=== PATIENT | male | born 1945 | race Caucasian/White ===

== ENCOUNTER 2019-08-29 13:28 | Outpatient (CLI) | payer MEDICARE, OTHER, SELFPAY ==
--- NOTE | 2019-08-29 13:48 | CT_ITS ---
WS: [id number] CT ABDOMEN PELVIS TECHNIQUE: Noncontrast CT of the abdomen and pelvis with coronal and sagittal reformatted images. CLINICAL INFORMATION: LEFT FLANK PAIN COMPARISON: CT January 25, 2019 DLP: 1165.[address] scans at [facility] use at least one of these dose optimization techniques: automat ed exposure control; mA and/or kV adjustment per patient size (includes targeted exams where dose is matched to clinical indication); or iterative reconstruction. FINDINGS: Noncontrast liver is normal. Enlargement of the right hepatic lobe hepatomegaly. Normal GE junction. Adrenal glands are normal. Normal noncontrast spleen. Fatty atrophy of the pancreas. Lung bases are w ell aerated. Calcified granuloma right lower lobe. Obstructing bilateral proximal ureteral calculi. Left proximal obstructing calculus measuring 4 mm w ith mild left pelvocaliectasis. Distal ureter is decompressed. Additional obstructing right proximal ureteral calculus measuring 3.6 mm. Otherwise small nonobstruct ing renal parenchymal calculi. Distal right ureter is decompressed. Indeterminate heterogeneous lesion mid pole right kidney measuring 2.0 x 1.9 cm. This is indeterminan t on today's noncontrast examination but appears to represent a cyst in the prior contrast enhanced e xamination January 25, 2019. Tiny exophytic lesion right lower pole likely renal cyst. Normal calibe r abdominal aorta. Moderate aortic atheromatous disease. No significant aneurysm. Prostate calcification. Gallbladder is contracted. No abdominal or pelvic lymphadenopathy. No free fl uid in the pelvis. IMPRESSION: 1. Small bilateral ureteral calculi proximally measuring 4 mm on the left and 3.6 mm in the right. M ild left pyelocaliectasis and mild hydronephrosis. No hydronephrosis right kidney. The distal ureters are decompressed. 2. Heterogeneous 2.0 x 1.9 cm lesion mid aspect right kidney posterolaterally. This is indeterminant on today's exam but appears to represent a cyst on the prior contrast exam January 25, 2019. Recomm end further evaluation with ultrasound. 3. Hepatomegaly with mild diffuse fatty infiltration. 4. Moderate aortic calcification. No significant aneurysm.
== END 2019-08-29 13:29 | disposition home or self-care (01) ==
LOC: RADWPI 13:37
PROVIDERS: Family Provider Nurse Practitioner; PCP Nurse Practitioner; Visit Provider Family Medicine
DX: R10.9 Unspecified abdominal pain (principal); N13.2 Hydronephrosis with renal and ureteral calculous obstruction; K76.0 Fatty (change of) liver, not elsewhere classified; I70.0 Atherosclerosis of aorta
CPT/HCPCS: 74176

== ENCOUNTER 2020-01-04 16:37 | Emergency (ER) | payer MEDICARE, OTHER, SELFPAY ==
[2020-01-04 16:42] VITALS: BP 164/111; PULSE 74; RESP 14; TEMP 36.4; O2SAT 100; BMI 29.5
--- NOTE | 2020-01-04 16:43 | XRR_ITS ---
PROCEDURE INFORMATION: Exam: XR Left Finger(s) Exam date and time: 01/04/2020 4:49 PM Age: 74 years old Clinical indication: Injury or trauma; Other: Circular saw; Bleeding/hemorrhage; Left middle finger; Injury date: 01/04/2020; Additional info: Finger v circular saw TECHNIQUE: Imaging protocol: XR Left fingers. Views: Minimum 2 views. COMPARISON: No relevant prior studies available. FINDINGS: Bones/joints: Multi-articular primary osteoarthritic changes including joint space narrowing, subchondral cystic/sclerotic changes, and marginal osteophyte formations. Soft tissues: There is soft tissue laceration at the volar aspect of the distal 3rd finger. No underlying bony injury is seen. There are benign-appearing soft tissue calcifications. XR/XR finger LT min 2V [id number] IMPRESSION: There is soft tissue laceration at the volar aspect of the distal 3rd finger. No underlying bony injury is seen.
[2020-01-04] MEDS: acetaminophen 500 mg Tablet 1000 MG PO (17:04)
--- NOTE | 2020-01-04 17:42 | ED_ITS ---
Documented by User: Lenora Tesfaye MD 01/08/20 06:40 HPI - Wound/Laceration General: Chief Complaint: Wound/Laceration Stated Complaint: INJURY VIA CIRCLULAR SAW Time Seen by Provider: 01/04/20 16:43 History of Present Illness: HPI narrative: This patient is a 74-year-old gentleman who was using a circular saw to cut wood. He got his left hand too close to the blade and it cut the tip of his left finger. His tetanus shot is u p-to-date. He denies any other injuries. Onset (ago): minute(s) Extremity Location: Left: hand Place: home Context: accidental Associated symptoms: Reports no associated symptoms Review of Systems Card: Denies: chest pain Resp: Denies: dyspnea Physical Exam Const: COMMON NORMALS: no acute distress, patient oriented x3, no limitations and alert GENERAL APPEARANCE: cooperative and comfortable HENMT: HEAD & SCALP: normal to inspection FACE & SINUS: normal facial exam Eye: GENERAL EYE: appearance normal, both eyes and all related structures Neck/C-Spine: COMMON NORMALS: supple, no meningeal signs and no JVD Chest: COMMONS NORMALS: normal inspection of the chest Resp: COMMON NORMALS: normal respiratory effort, No use of accessory muscles and clear to auscultation bilaterally AUSCULTATION: clear to auscultation bilaterally Cardio: COMMON NORMALS: no JVD, regular rate, regular rhythm and No murmurs present (Cardio) RATE: regular rate RHYTHM: regular rhythm GI: COMMON NORMALS: Normal to inspection, nondistended, normoactive bowel ze nds present, Soft to palpation and non-tender INSPECTION: Yes normal to inspection AUSCULTATION: Yes normoactive bowel sounds PALPATION: Yes Soft to palpation Back/Pelvis: COMMON NORMALS: thoracic and lumbar spine normal to inspection Extremity: NARRATIVE EXTREMITY EXAM: Tip of the long finger on the left hand has a flap type laceration on the volar surface. Nail and joints are intact. There is also an abrasion on the volar surface of the index finger on the left hand. GENERAL: Yes normal exam except as noted Neuro: COMMON NORMALS: patient oriented x3, moves all extremities, no focal motor deficits and no sensory deficits noted SENSORIUM/ORIENTATION: Yes alert MENINGEAL SIGNS: Yes no meningeal signs Psych: COMMON NORMALS: mental status grossly normal, cooperative and normal affect Skin: COMMON NORMALS: no rashes or lesions noted and turgor normal GENERAL SKIN EXAM: no rashes or lesions noted and turgor normal Course Vital Signs: Vital signs: Vital Signs Temperature 97.6 F 01/04/20 16:42 Pulse Rate 75 01/04/20 18:29 Respiratory Rate 16 01/04/20 18:29 Blood Pressure 150/89 01/04/20 18:29 Pulse Oximetry 95 01/04/20 18:29 Discharge Plan Discharge Patient Disposition: Home Clinical Impression: Laceration Condition: Stable Discharge Orders: Discharge Order (Routine); Ordered 01/04/20 Ordered By: Lenora Tesfaye Referrals: Astrid Streeter FNP [Primary Care Provider] - Discharge Diet: Usual diet Discharge Activity: Resume usual activity Patient Instructions: Finger Laceration (ED) Activity Restrictions/Additional Instructions: Use Tylenol [id number] for pain. Keep hand elevated as it will help to reduce pain and swelling. Return to the ER if any new or worse symptoms. Watch for signs of infection. Sutures should be removed in about 10 days Discharge Date/Time: 01/04/20 18:30 Coding Level of Care Code ED Termite Control Technician for Chg Fwd Exam Comprehensive Documented by User: MAIKOL Mcgovern 01/04/20 21:45 HPI - Wound/Laceration General: Chief Complaint: Wound/Laceration Stated Complaint: INJURY VIA CIRCLULAR SAW Time Seen by Provider: 01/04/20 16:43 Procedures Laceration Laceration 1: Site: hand (3rd finger left hand) Side (If applicable): left Size (cm): 2 Description: flap Depth: simple, single layer Pre-repair: wound explored Skin layer closed with: nylon Size (cm): 4-0 Number of sutures: 5 Technique: simple, interrupted Nerve Block Nerve Block 1: Time out performed: Yes Local Anesthetic: lidocaine 1% Amount of anesthesia used (mL): 10 Side: left Nerve Blocks: digital (3rd digit, left hand) Procedure Successful: Yes Patient Tolerated Procedure: well Course Vital Signs: Vital signs: Vital Signs Temperature 97.6 F 01/04/20 16:42 Pulse Rate 75 01/04/20 18:29 Respiratory Rate 16 01/04/20 18:29 Blood Pressure 150/89 01/04/20 18:29 Pulse Oximetry 95 01/04/20 18:29 Discharge Plan Discharge Patient Disposition: Home Clinical Impression: Laceration Condition: Stable Discharge Orders: Discharge Order (Routine); Ordered 01/04/20 Ordered By: Lenora Tesfaye Referrals: Astrid Streeter FNP [Primary Care Provider] - Discharge Diet: Usual diet Discharge Activity: Resume usual activity Patient Instructions: Finger Laceration (ED) Activity Restrictions/Additional Instructions: Use Tylenol [id number] for pain. Keep hand elevated as it will help to reduce pain and swelling. Return to the ER if any new or worse symptoms. Watch for signs of infection. Sutures should be removed in about 10 days Discharge Date/Time: 01/04/20 18:30 Coding Level of Care Code ED Termite Control Technician for Lyly Fwd Exam Comprehensive
[2020-01-04 18:29] VITALS: BP 150/89; PULSE 75; RESP 16; O2SAT 95
== END 2020-01-04 18:30 | disposition home or self-care (01) ==
PROVIDERS: Emergency Provider Emergency Medicine; PCP Nurse Practitioner
DX: S61.213A Laceration without foreign body of left middle finger without damage to nail, initial encounter (principal); W27.0XXA Contact with workbench tool, initial encounter
CPT/HCPCS: 12001; 12345; 73140; 99283

== ENCOUNTER 2021-08-23 20:06 | Emergency (ER) | payer MEDICARE, OTHER, SELFPAY ==
[2021-08-23 20:06] VITALS: BMI 29.2
--- NOTE | 2021-08-23 20:09 | XRR_ITS ---
PROCEDURE INFORMATION: Exam: XR Left Shoulder Exam date and time: 08/23/2021 8:21 PM Age: 76 years old Clinical indication: Pain; Shoulder; Left; Additional info: Fall TECHNIQUE: Imaging protocol: Radiologic exam of the Left shoulder. Views: 2 or more views. COMPARISON: US soft tissue/extremity [id number] 04/12/2021 2:55 PM FINDINGS: Bones/joints: Normal. Soft tissues: Normal. XR/XR shoulder LT min 2V* [id number] IMPRESSION: No acute findings.
[2021-08-23 20:11] VITALS: BP 153/86; PULSE 72; RESP 16; TEMP 36.7; O2SAT 96
--- NOTE | 2021-08-23 20:14 | ED_ITS ---
HPI - Trauma General: Chief Complaint: Trauma Stated Complaint: FALL Time Seen by Provider: 08/23/21 20:06 Source: patient and EMS Mode of arrival: EMS Limitations: no limitations History of Present Illness: 76-year-old male states that he was up on a 6 foot ladder just before arrival. He states that he got turned weird and fell off backwards. He states that he hit his back along with his left shoulder and his head. He states he has low back pain along with upper back pain left shoulder left chest and neck pain. He is unsure if he had loss consciousness has a very mild headache. States his pain currently is a 4 out of 10 denies any other injuries he was ambulatory after the event. Associated symptoms: Reports back pain, chest pain and headache(s); Denies abdominal pain, chills, dental pain, fever(s), nausea or vomiting Review of Systems Const: Denies: fever(s), chills, body aches or change in appetite Eyes: Denies: blurry vision or eye discomfort ENMT: Denies: throat pain or dental pain Card: Reports: chest pain Resp: Denies: dyspnea GI: Denies: abdominal pain, nausea, vomiting or diarrhea : Denies: dysuria Musc: Reports: neck pain and back pain Skin/Breast: Denies: rash Neuro: Reports: headache(s) Psych: Denies: depression Madhu/Lymph: Denies: easy bruising All/Imm: Denies: urticaria [facility] ED PFSH: Medical History (Updated 08/23/21 @ 22:16 by Triny Cassidy MD) No pertinent past medical history Social History Smoking and tobacco status: never smoked Physical Exam Const: COMMON NORMALS: no acute distress, patient oriented x3 and healthy appearing HENMT: COMMON NORMALS: normocephalic; head/scalp not atraumatic (tenderness over left scalp) HEAD & SCALP: normocephalic; not atraumatic (tenderness over left scalp) Eye: COMMON NORMALS: Equal, round and reactive pupils present and EOMs intact bilaterally PUPIL: Yes Equal, round and reactive pupils present Neck/C-Spine: OTHER: left neck tenderness Chest: COMMONS NORMALS: normal inspection of the chest OTHER: slight tenderness over left upper chest Resp: COMMON NORMALS: normal respiratory effort, No retractions, No use of accessory muscles and clear to auscultation bilaterally AUSCULTATION: clear to auscultation bilaterally Cardio: COMMON NORMALS: regular rate, regular rhythm and No murmurs present (Cardio) RATE: regular rate RHYTHM: regular rhythm GI: COMMON NORMALS: Normal to inspection, nondistended, normoactive bowel ze nds present, Soft to palpation, non-tender and no masses PALPATION: Yes Soft to palpation Back/Pelvis: OTHER: l spine tenderness Extremity: COMMON NORMALS: normal to inspection and full ROM Neuro: COMMON NORMALS: patient oriented x3, moves all extremities and no focal motor deficits Psych: COMMON NORMALS: mental status grossly normal, Normal thought process present and cooperative THOUGHT PROCESS: Normal thought process present Skin: COMMON NORMALS: no rashes or lesions noted and no wounds GENERAL SKIN EXAM: no rashes or lesions noted Course Vital Signs: Vital signs: Vital Signs Temperature 98.1 F 08/23/21 20:11 Pulse Rate 72 08/23/21 20:11 Respiratory Rate 16 08/23/21 20:11 Blood Pressure 153/86 08/23/21 20:11 Pulse Oximetry 96 08/23/21 20:11 MDM - Trauma Medical Decision Making Patient presents here after a fall off a ladder. Does have a left rib fracture causing pain. On exam he does have low back pain no CT findings CT showed a possible iliac fracture he has no tenderness over his iliac he is able ambulate without any difficulty. We will place him on pain meds he is stable for discharge she is to follow-up on return if worsening. Lab Data Radiology Impressions Shoulder X-Ray 08/23/21 20:09 IMPRESSION: No acute findings. Cervical Spine CT 08/23/21 20:31 IMPRESSION: No acute findings. Nonemergent thyroid ultrasound recommended for finding posteriorly on the right. Chest CT 08/23/21 20:31 IMPRESSION: 1. Left rib fractures of uncertain age, likely old. 2. Otherwise no acute findings in the chest COMMENTS: Consistent with the [employer]'s Incidental Findings Committee white paper (J Am Aydin Radiol 2018): Any incidental renal lesion less than 1 cm or classified as too small to characterize, or any incidental cystic renal lesion characterized as simple-appearing, is likely benign. No follow-up imaging is recommended for these lesions per consensus recommendations based on imaging criteria. Head CT 08/23/21 20:31 IMPRESSION: No acute intracranial abnormality. Lumbar Spine CT 08/23/21 20:31 IMPRESSION: 1. Degenerative changes and spinal stenosis in the lumbar spine as described. 2. Question of small nondisplaced avulsion fracture posterior aspect of the right iliac bone. 3. No major fracture is identified. Discharge Plan Discharge Patient Disposition: Home Clinical Impression: Left rib fracture, Back contusion Fall Qualifiers: Encounter type: initial encounter Qualified Code(s): W19.XXXA - Unspecified fall, initial encounter Condition: Stable Prescriptions: New hydrocodone-acetaminophen 5-325 mg tablet 1 tab PO Q6H PRN (Reason: pain) Qty: 14 0RF Discharge Orders: Discharge ED (Routine); Ordered 08/23/21 Ordered By: Triny Cassidy Referrals: Astrid Streeter FNP [Primary Care Provider] - 1-3 days Discharge Diet: Advance as tolerated Discharge Activity: Resume usual activity Patient Instructions: Rib Fracture (ED), Low Back Strain (ED), Opioid Safety Coding Level of Care Code ED Promotions Specialist for Chg Fwd Exam Comprehensive
--- NOTE | 2021-08-23 20:31 | CTR_ITS ---
PROCEDURE INFORMATION: Exam: CT Chest Without Contrast; Diagnostic Exam date and time: 08/23/2021 9:10 PM Age: 76 years old Clinical indication: Injury or trauma; Fall; Blunt trauma (contusions or hematomas); Additional info: Fall from ladder, left side chest pain TECHNIQUE: Imaging protocol: Diagnostic computed tomography of the chest without contrast. Radiation optimization: All CT scans at this facility use at least one of these dose optimization techniques: automated exposure control; mA and/or kV adjustment per patient size (includes targeted exams where dose is matched to clinical indication); or iterative reconstruction. COMPARISON: CR Chest 1 [place] [id number] 01/26/2019 12:03 PM RADIATION DOSE METRICS: Total DLP (mGy-cm): 1136.45 FINDINGS: Lungs: There is some mild fibrotic changes at the pulmonary apices and some subpleural emphysema. There is mild dependent atelectasis at the lung bases. Pleural spaces: No pneumothorax is identified. Heart: There is moderate atherosclerotic calcification of the coronary arteries. Lymph nodes: There is no evidence of lymphadenopathy. Vasculature: There is no evidence of thoracic aortic aneurysm. There is some mild atherosclerotic calcification of the aortic arch and descending thoracic aorta. Kidneys and ureters: There is a right renal collecting system calcification. There is a benign-appearing cyst upper pole right kidney. Bones/joints: There are fractures of the lateral aspect of the left 2nd through 5th ribs. There are mild degenerative changes in the thoracic spine. No acute thoracic spine fracture is identified. Second and 3rd rib fractures appear to be old and healed. The others are likely also chronic. Soft tissues: Unremarkable. CT/CT chest con [id number] IMPRESSION: 1. Left rib fractures of uncertain age, likely old. 2. Otherwise no acute findings in the chest COMMENTS: Consistent with the [employer]'s Incidental Findings Committee white paper (J Am Aydin Radiol 2018): Any incidental renal lesion less than 1 cm or classified as too small to characterize, or any incidental cystic renal lesion characterized as simple-appearing, is likely benign. No follow-up imaging is recommended for these lesions per consensus recommendations based on imaging criteria.
--- NOTE | 2021-08-23 20:31 | CTR_ITS ---
PROCEDURE INFORMATION: Exam: CT Cervical Spine Without Contrast Exam date and time: 08/23/2021 9:06 PM Age: 76 years old Clinical indication: Injury or trauma; Fall; Blunt trauma TECHNIQUE: Imaging protocol: Computed tomography of the cervical spine without contrast. Radiation optimization: All CT scans at this facility use at least one of these dose optimization techniques: automated exposure control; mA and/or kV adjustment per patient size (includes targeted exams where dose is matched to clinical indication); or iterative reconstruction. COMPARISON: CT head wo con* [id number] 08/23/2021 9:03 PM RADIATION DOSE METRICS: Total DLP (mGy-cm): 805.66 FINDINGS: Bones/joints: No acute fracture. Normal alignment. Discs/Spinal canal/Neural foramina: Multilevel degenerative disc change. Lungs: Lung apices are normal. Soft tissues: A few soft tissue calcifications are seen posteriorly. Nodular asymmetry measuring up to 3 cm greatest dimension at posterior right thyroid or posterior to right thyroid. CT/CT cervical spin wo con* [id number] IMPRESSION: No acute findings. Nonemergent thyroid ultrasound recommended for finding posteriorly on the right.
--- NOTE | 2021-08-23 20:31 | CTR_ITS ---
PROCEDURE INFORMATION: Exam: CT Lumbar Spine Without Contrast Exam date and time: 08/23/2021 9:14 PM Age: 76 years old Clinical indication: Injury or trauma; Fall; Blunt trauma (contusions or hematomas) TECHNIQUE: Imaging protocol: Computed tomography of the lumbar spine without contrast. Radiation optimization: All CT scans at this facility use at least one of these dose optimization techniques: automated exposure control; mA and/or kV adjustment per patient size (includes targeted exams where dose is matched to clinical indication); or iterative reconstruction. COMPARISON: CR XR lumbar spine min 4V [id number] 06/22/2021 10:56 AM RADIATION DOSE METRICS: Total DLP (mGy-cm): 2143.74 FINDINGS: Bones/joints: There is L5 which is partly sacralized on the left with a broadened left transverse process and pseudoarticulation with S1 with associated degenerative changes. There also advanced degenerative changes in the L5-S1 facet joint. Degenerative changes are present in facet joints bilaterally at L3-L4 and L4-L5 and L5-S1 on the right. There is linear lucency in the posterior aspect of the right iliac bone posterior to the right sacroiliac joint such as on axial image number 95 series 3 or corresponding sagittal image number 47 series 601 which could represent an acute nondisplaced fracture. Discs/Spinal canal/Neural foramina: There is decreased height of all of the intervertebral disc spaces, most severely at L3-L4 and L4-L5. There is posterior bulging of the discs at L3-L4 and L4-L5. There is moderate central canal stenosis at L3-L4 and L4-L5. There is diffuse posterior bulging of the L2-L3 disc causing moderate central canal stenosis. Soft tissues: Unremarkable. CT/CT lumbar spine wo con* [id number] IMPRESSION: 1. Degenerative changes and spinal stenosis in the lumbar spine as described. 2. Question of small nondisplaced avulsion fracture posterior aspect of the right iliac bone. 3. No major fracture is identified.
--- NOTE | 2021-08-23 20:31 | CTR_ITS ---
PROCEDURE INFORMATION: Exam: CT Head Without Contrast Exam date and time: 08/23/2021 9:03 PM Age: 76 years old Clinical indication: Injury or trauma; Fall; Blunt trauma (contusions or hematomas); Without loss of consciousness TECHNIQUE: Imaging protocol: Computed tomography of the head without contrast. Radiation optimization: All CT scans at this facility use at least one of these dose optimization techniques: automated exposure control; mA and/or kV adjustment per patient size (includes targeted exams where dose is matched to clinical indication); or iterative reconstruction. COMPARISON: US thyroid [id number] 08/10/2020 3:01 PM RADIATION DOSE METRICS: Total DLP (mGy-cm): 895.31 FINDINGS: Brain: Mild periventricular white matter low densities are most consistent with chronic small vessel ischemic change. No findings of intracranial hemorrhage. Small basal ganglia low densities can represent prominent perivascular spaces or chronic lacunes. Cerebral ventricles: No ventriculomegaly. Paranasal sinuses: Mild paranasal sinus mucosal thickening. No evident free fluid. Mastoid air cells: Visualized mastoid air cells are well aerated. Bones/joints: No acute findings. Soft tissues: Unremarkable. CT/CT head wo con* [id number] IMPRESSION: No acute intracranial abnormality.
[2021-08-23] MEDS: HYDROcodone-acetaminophen 5-325 mg Tablet 1 TAB PO (22:20)
[2021-08-23 22:42] VITALS: BP 148/93; PULSE 54; RESP 18; O2SAT 100
== END 2021-08-23 22:45 | disposition home or self-care (01) ==
PROVIDERS: Emergency Provider Emergency Medicine; PCP Nurse Practitioner
DX: S22.32XA Fracture of one rib, left side, initial encounter for closed fracture (principal); S30.0XXA Contusion of lower back and pelvis, initial encounter; W11.XXXA Fall on and from ladder, initial encounter
CPT/HCPCS: 70450; 71250; 72125; 72131; 73030; 99283

== ENCOUNTER 2022-01-29 10:22 | Emergency (ER) | payer MEDICARE, OTHER, SELFPAY ==
[2022-01-29 10:30] VITALS: BP 182/98; PULSE 82; RESP 16; TEMP 36.7; O2SAT 97; BMI 27.5
[2022-01-29 11:57] VITALS: BP 115/79; PULSE 91; RESP 14; O2SAT 98
--- NOTE | 2022-01-29 12:15 | XRR_ITS ---
PROCEDURE INFORMATION: Exam: XR Right Mandible Exam date and time: 01/29/2022 12:37 PM Age: 76 years old Clinical indication: Injury or trauma; Other: Dog bite RT ear TECHNIQUE: Imaging protocol: XR of the Right mandible. Views: 4 or more views COMPARISON: CT head wo con* [id number] 08/23/2021 9:03 PM FINDINGS: Sinuses: Well aerated. No opacification. Bones/joints: No fracture. Soft tissues: Unremarkable. XR/XR mandible <4V [id number] IMPRESSION: Unremarkable.
--- NOTE | 2022-01-29 12:37 | W.ED.WOUNDLC ---
Documented by User: CORBY Rausch 01/29/22 14:39 HPI - Wound/Laceration General: Chief Complaint: Wound/Laceration Stated Complaint: Dog bite to right ear Time Seen by Provider: 01/29/22 11:58 History of Present Illness: Patient is in today for a dog bite. He reports that the neighbors dog was fighting with his dogs and jumped up and bit him on the right ear. Patient reports that he does not recall when his last tetanus vaccination was but he was in here for a major fall a couple months ago and thinks he might of had it then. Patient reports that the neighbors dog is up-to-date on rabies vaccination. Associated symptoms: Denies chills or fever(s) Review of Systems Const: Denies: fever(s) or chills Card: Denies: chest pain or palpitations Resp: Denies: dyspnea Skin/Breast: Reports: other (Dog bite right earlobe right side of neck) [facility] ED PFSH: Medical History No pertinent past medical history Social History Smoking and tobacco status: never smoked Physical Exam Const: COMMON NORMALS: no acute distress, patient oriented x3 and alert HENMT: EAR IMAGES: 1. 2. Neck/C-Spine: NECK IMAGES: 1. 6 cm laceration. Wound edges approximate well. Deeper structures do not appear involved. Bleeding controlled Resp: COMMON NORMALS: normal respiratory effort and No use of accessory muscles Neuro: COMMON NORMALS: patient oriented x3 SENSORIUM/ORIENTATION: Yes alert Skin: NARRATIVE SKIN EXAM: Patient has lacerations to the right pinna and also a 6 cm vertical laceration starting from the right tragus down the angle of the jaw. Skin approximates well. Procedures Laceration Vertical: Site: face (Vertical from the tragus down to the neck) Side (If applicable): right Size (cm): 6 Description: linear Depth: simple, single layer Local Anesthetic: lidocaine 1% Amount of anesthesia used (mL): 3 Pre-repair: wound explored, irrigated extensively and deep structures intact Skin layer closed with: other (Prolene) Size (cm): 5-0 Technique: running Pinna: Site: other (Right pinna) Side (If applicable): right Size (cm): 2 Description: flap and irregular Depth: simple, single layer Local Anesthetic: lidocaine 1% Amount of anesthesia used (mL): 1.5 Pre-repair: wound explored and irrigated extensively Skin layer closed with: other (Prolene) Size (cm): 5-0 Number of sutures: 5 Technique: simple, interrupted Course ED course: Suture repair was done. Patient really struggled to tolerate local anesthetic however suture repair was tolerated well with no immediate complications. Bleeding is controlled. Wound approximated well to the vertical laceration. The pinna of the right ear is tacked together loosely as well approximated as possible. Vital Signs: Vital signs: Vital Signs Temperature 98.1 F 01/29/22 10:30 Pulse Rate 91 01/29/22 11:57 Respiratory Rate 14 01/29/22 11:57 Blood Pressure 115/79 01/29/22 11:57 Pulse Oximetry 98 01/29/22 11:57 Oxygen Delivery Me thod 01/29/22 11:57 MDM - Wound/Laceration Medical Decision Making Patient with a dog bite. He reports that his neighbor says the dog is up-to-date on rabies vaccination. Patient has approximately a 6 cm vertical laceration from his pinna down to his neck with irregular and flap laceration to the right pinna. Bleeding is controlled. Deeper structures did not appear to be involved. I did consult with Dr. Fernando who reviewed the laceration. He agreed with the plan to close with sutures. He recommended running suture to the vertical laceration and tacking simple interrupted sutures for the pinna. These will be kept loose to allow for draining should the wound become infected since it was a dog bite. Tetanus is updated today. Start patient on antibiotic for prophylactic dog bite. Advised patient of possible benefits and side effects of medication. Follow-up in 5 days for suture removal. Advised him to monitor closely for signs of infection as dog bites often get infected. Return to the ER as needed for new or worsening symptoms. Lab Data Radiology Impressions Mandible X-Ray 01/29/22 12:15 IMPRESSION: Unremarkable. Discharge Plan Discharge Patient Disposition: Home Clinical Impression: Laceration, Dog bite of ear Condition: Stable Prescriptions: New amoxicillin-pot clavulanate 875-125 mg tablet 1 tab PO BID 10 Days Qty: 20 0RF No Action hydrocodone-acetaminophen 5-325 mg tablet 1 tab PO Q6H PRN (Reason: pain) Qty: 14 0RF Discharge Orders: Discharge ED (Routine); Ordered 01/29/22 Ordered By: Aviva Gonzalez Referrals: Astrid Streeter FNP [Primary Care Provider] - Discharge Diet: Usual diet Discharge Activity: Resume usual activity Patient Instructions: Care For Your Stitches (DC) Activity Restrictions/Additional Instructions: Take antibiotic as directed. Keep the area clean and dry. Monitor closely for infection including oozing, drainage, increased redness, increased pain. Follow-up in 5 days for suture removal either at your primary care provider's office or you may return to the ER. Follow-up with your PCP as needed. Return to the ER for any new or worsening symptoms Coding Level of Care Code ED Phlebotomist for Chg Fwd Exam Expanded Problem Focused Documented by User: Harry Fernando DO 01/29/22 16:45 HPI - Wound/Laceration General: Chief Complaint: Wound/Laceration Stated Complaint: Dog bite to right ear Time Seen by Provider: 01/29/22 11:58 [facility] ED PFSH: Medical History No pertinent past medical history Social History Smoking and tobacco status: never smoked Physical Exam HENMT: EAR IMAGES: 1. 2. Neck/C-Spine: NECK IMAGES: 1. 6 cm laceration. Wound edges approximate well. Deeper structures do not appear involved. Bleeding controlled Course Vital Signs: Vital signs: Vital Signs Temperature 98.1 F 01/29/22 10:30 Pulse Rate 91 01/29/22 11:57 Respiratory Rate 14 01/29/22 11:57 Blood Pressure 115/79 01/29/22 11:57 Pulse Oximetry 98 01/29/22 11:57 Oxygen Delivery Me thod 01/29/22 11:57 MDM - Wound/Laceration Medical Decision Making Patient with a dog bite. He reports that his neighbor says the dog is up-to-date on rabies vaccination. Patient has approximately a 6 cm vertical laceration from his pinna down to his neck with irregular and flap laceration to the right pinna. Bleeding is controlled. Deeper structures did not appear to be involved. I did consult with Dr. Fernando who reviewed the laceration. He agreed with the plan to close with sutures. He recommended running suture to the vertical laceration and tacking simple interrupted sutures for the pinna. These will be kept loose to allow for draining should the wound become infected since it was a dog bite. Tetanus is updated today. Start patient on antibiotic for prophylactic dog bite. Advised patient of possible benefits and side effects of medication. Follow-up in 5 days for suture removal. Advised him to monitor closely for signs of infection as dog bites often get infected. Return to the ER as needed for new or worsening symptoms. Chart reviewed and patient discussed with midlevel. Agree with assessment and plan. Lab Data Radiology Impressions Mandible X-Ray 01/29/22 12:15 IMPRESSION: Unremarkable. Discharge Plan Discharge Patient Disposition: Home Clinical Impression: Laceration, Dog bite of ear Condition: Stable Prescriptions: New amoxicillin-pot clavulanate 875-125 mg tablet 1 tab PO BID 10 Days Qty: 20 0RF No Action hydrocodone-acetaminophen 5-325 mg tablet 1 tab PO Q6H PRN (Reason: pain) Qty: 14 0RF Discharge Orders: Discharge ED (Routine); Ordered 01/29/22 Ordered By: Aviva Gonzalez Referrals: Astrid Streeter FNP [Primary Care Provider] - Discharge Diet: Usual diet Discharge Activity: Resume usual activity Patient Instructions: Care For Your Stitches (DC) Activity Restrictions/Additional Instructions: Take antibiotic as directed. Keep the area clean and dry. Monitor closely for infection including oozing, drainage, increased redness, increased pain. Follow-up in 5 days for suture removal either at your primary care provider's office or you may return to the ER. Follow-up with your PCP as needed. Return to the ER for any new or worsening symptoms Coding Level of Care Code ED Phlebotomist for Lyly Fwofelia Exam Expanded Problem Focused
[2022-01-29] MEDS: tetanus-dipt-pertussis 0.5 mL SDV IM (14:34)
[2022-01-29] MEDS: lidocaine 1% INJ 20 mL MDV (mL) 3 ML SUBCUT (14:39)
[2022-01-29] MEDS: lidocaine-prilocaine cream 5 gm 1 APPLIC TOPICAL (14:39)
--- NOTE | 2022-02-06 07:54 | PC.NURSE ---
PT REQUESTING TO HAVE SUTURES REMOVED ASSESSED BY PROVIDER JUAN. HE STATED PT SHOULD WAIT TO HAVE SUTURES REMOVED.
== END 2022-01-29 14:43 | disposition home or self-care (01) ==
PROVIDERS: Emergency Provider Nurse Practitioner Family; PCP Nurse Practitioner
DX: S01.351A Open bite of right ear, initial encounter (principal); W54.0XXA Bitten by dog, initial encounter; Z23 Encounter for immunization
CPT/HCPCS: 12015; 70100; 90471; 90715; 99283

== ENCOUNTER 2023-06-18 06:59 | Outpatient (CLI) | payer OTHER, SELFPAY ==
--- NOTE | 2023-06-18 07:20 | MR_ITS ---
WS: [id number] MRI LEFT FOOT WITHOUT CONTRAST. COMPARISON: None Multiplanar, multisequence imaging is performed without contrast. No fracture or marrow edema involving the bones of the foot. There is no widening or separation of th e Lisfranc ligament. The ligament itself does appear intact. No erosions at the metatarsal heads. The anterior tibial tendon, extensor hallucis longus and extensor digitorum longus are all normal. Th e visualized peroneal tendons along the plantar surface of the foot are negative. There is no muscle atrophy or edema. No soft tissue mass. IMPRESSION: 1. No MRI abnormality LEFT foot. There is no fracture or marrow edema. 2. The visualized tendons and ligaments are negative.
--- NOTE | 2023-06-18 07:20 | MR_ITS ---
WS: [id number] MRI LEFT LOWER EXTREMITY (TIBIA/FIBULA) WITHOUT CONTRAST. COMPARISON: No similar studies. LEFT ankle radiograph 06/08/2022 Multiplanar, multisequence imaging is performed without contrast. No marrow edema or acute fracture in the tibia or fibula. No destructive bone lesion. No significant asymmetry or atrophy of the muscles. No edema within the muscles identified. There is no soft tissue mass along the course of the nerves. Small Albarado's cyst is identified. No masses or distortion of the muscles. The ankle is not as well visualized as the remaining lower ex tremity due to the position at the edge of the magnetic field. No abnormality is identified. IMPRESSION: Negative MRI LEFT lower extremity. No osseous abnormality or soft tissue abnormality. Small Albarado's cyst.
== END 2023-06-18 07:00 | disposition home or self-care (01) ==
LOC: RAD 06:59
PROVIDERS: PCP Nurse Practitioner; Visit Provider Family Medicine
DX: M79.672 Pain in left foot (principal); M79.662 Pain in left lower leg
CPT/HCPCS: 73718

== ENCOUNTER 2023-08-01 08:15 | Outpatient (CLI) | payer OTHER, MEDICARE, SELFPAY ==
--- NOTE | 2023-08-01 08:28 | NM_ITS ---
WS: [id number] EXAMINATION: NM parathyroid [id number] ORDER DATE: 08/01/2023 8:28 AM COMPARISON: Ultrasound 2020 HISTORY: DISORDER OF THYROID TECHNIQUE: Parathyroid scintigraphy with 18.9 mCi of technetium 99 M sestamibi administered. AP and o blique views obtained with and without chin and suprasternal notch markers. Initial and 2 hour delayed imagi ng acquired. FINDINGS: Normal salivary gland uptake on the initial imaging. Focal intense uptake involving the RIGHT lower t hyroid may correspond to the previously described nodule on the ultrasound 2020. This could be furthe r evaluated with current ultrasound imaging. Normal LEFT thyroid washout on the delayed imaging. Persistent activity overlying the RIGHT lower lob e suspicious for parathyroid adenoma. No other suspicious findings. NM/NM parathyroid [id number] IMPRESSION: 1. Persistent retained activity on the delayed imaging overlying the RIGHT inf erior thyroid lobe at the level of the suprasternal notch suspicious for parath yroid adenoma 2. Intense uptake on the initial imaging may correspond to a RIGHT lower lobe thyroid nodule seen on the prior ultrasound 2020. This could be further evaluat ed with an updated ultrasound.
== END 2023-08-01 08:16 | disposition home or self-care (01) ==
LOC: RAD 08:15
PROVIDERS: PCP Family Medicine; Visit Provider Specialist
DX: E04.1 Nontoxic single thyroid nodule (principal)
CPT/HCPCS: 78070; A9500

== ENCOUNTER → 2023-11-21 10:20 | Outpatient (BNVA) | payer MEDICARE, OTHER, SELFPAY | PROVIDERS: PCP Family Medicine; Referring Provider Family Medicine; Visit Provider Student in an Organized Health Care Education/Training Program | DX: D17.1 Benign lipomatous neoplasm of skin and subcutaneous tissue of trunk (principal) | CPT/HCPCS: 99204 ==

== ENCOUNTER 2023-11-28 05:45 | Day surgery (SDC) | payer MEDICARE, OTHER, SELFPAY ==
[2023-11-28] VITALS (10 sets, daily range): BP systolic 107–156; BP diastolic 46–94; PULSE 48–66; RESP 16–20; TEMP 36.3–36.8; O2SAT 94–99; BMI 27.3
[2023-11-28] MEDS: sodium chloride 0.9% 1,000 ML 30 ML IV (06:10)
--- NOTE | 2023-11-28 06:29 | ANES.PREANE2 ---
Pre-Anesthetic Assessment Height/Weight: Height 1.78 m Weight 86.636 kg Temp Pulse Resp BP Pulse Ox O2 Del Method 97.4 F L 52 L 16 156/94 98 Room Air 11/28/23 06:03 11/28/23 06:03 11/28/23 06:03 11/28/23 06:03 11/28/23 06:03 11/28/23 06:03 Operation Date: 11/28/23 07:00 Proposed Procedures p excision soft tissue mass 80202, D17.1(Not Applicable) - Octaviano Keene MD Familial anesthetic complications: none Was Beta John taken within 24 hours: N/A Was Clonidine taken within 24 hours: N/A Last intake: Intake Last Liquid Date 11/27/23 Last Liquid Time 22:30 Last Solid Date 11/27/23 Last Solid Time 17:30 Social No alcohol and No tobacco Airway Mallampati: Class III Dentition: other (no teeth) Metabolic Hyperlipidemia Anesthetic Plan ASA status: 2 Anesthesia: General Medications/Allergies Home Medications Medication Instructions Recorded Confirmed Last Taken Type rosuvastatin 5 mg tablet 5 mg PO .once every other day 11/21/23 11/27/23 11/27/23 History Allergies Allergy/AdvReac Type Severity Reaction Status Date / Time oxycodone Allergy ADR-Halluci Verified 11/28/23 05:57 nating Current Medications Generic Name Dose Route Start Last Admin Trade Name Freq PRN Reason Stop Dose Admin Sodium Chloride 1,000 mls @ 30 mls/hr 11/28/23 06:00 11/28/23 06:10 Sodium Chloride 0.9% IV 11/29/23 05:59 30 mls/hr .Q24H SIENNA Administration PFSH Anesthesia Medical History (Updated 11/21/23 @ 10:42 by Octaviano Keene MD) No pertinent past medical history Family History (Updated 11/21/23 @ 10:27 by VICENTE Coronado) Father Colon cancer Social History (Updated 11/21/23 @ 10:27 by VICENTE Coronado) Smoking and tobacco/nicotine status: unknown if used tobacco/nicotine Alcohol intake: former Data Anesthesia Cardiac Studies: No Data to Display
--- NOTE | 2023-11-28 07:02 | W.PM.OPSUD ---
Surgery/Procedure H&P Update DATE OF PROCEDURE: November 28, 2023 DATE H&P PERFORMED: 11/21/23 H&P UPDATE INFORMATION: I have reviewed H&P completed within last 30 days, I have examined patient prior to procedure and No changes to prior documentation PLANNED PROCEDURE: Operation Date: 11/28/23 07:00 Proposed Procedures p excision soft tissue mass 58181, D17.1(Not Applicable) - Octaviano Keene MD
[2023-11-28] MEDS: ceFAZolin 2,000 mg SDV 2000 MG IVP (07:06)
[2023-11-28] MEDS: BUPivacaine 0.25% INJ 10 mL INJECTION (07:41)
[2023-11-28] MEDS: lidocaine 1% 10 ML INJ INJECTION (07:41)
[2023-11-28] MEDS: neomycin-poly-bacitracin oint 28 gm 1 APPLIC TOPICAL (07:46)
--- NOTE | 2023-11-28 07:53 | P.OP_ITS ---
Pathology: Soft tissue Implant(s): None Anesthesia: General anesthesia Complications: None Brief history/preop diagnosis: 78-year-old male who presented with a soft tissue mass on the back. Discussion had about risks and benefits and patient agreed to proceed with surgery. Full operative report: Patient was brought into the operating room after obtaining consent. SCDs were on and functional. Preoperative Ancef was administered. General anesthesia was induced and patient was placed prone on the operating room table. Surgical site was prepped and draped in the usual sterile fashion. Local filtration was performed using lidocaine with ep inephrine 1%. An elliptical incision was made along tension lines. Soft tissue mass was excised along with its capsule which was embedded in the subcutaneous tissues. Mass with foul smelling and so cultures were sent. The mass was sent to pathology. 3-0 Vicryl was used to close the deep dermal layer in an interrupted fashion. Skin was closed with vertical mattress 2-0 nylon. Antibiotic ointment was applied and a silver impregnated island dressing was applied. Patient woke up from anesthesia without complications and was transferred to PACU. Condition: Stable Dispostion: Home
--- NOTE | 2023-11-28 09:10 | ANE.PACU2 ---
Inpatient post-anesthesia follow up: Airway intact: Yes Vital signs: Temperature 97.3 F Pulse Rate 48 Respiratory Rate 20 Blood Pressure 143/79 Pulse Oximetry 94 Oxygen Delivery Me thod Room Air Oxygen Flow Rate Fraction of Inspir ed Oxygen Hydration adequate: Yes Nausea and vomiting: No Pain level: 1 Mental status: Baseline
== END 2023-11-28 09:10 | disposition home or self-care (01) ==
PROVIDERS: PCP Family Medicine; Visit Provider Student in an Organized Health Care Education/Training Program
PROC: (CPT 21931; principal; 2023-11-28 07:00)
DX: L72.0 Epidermal cyst (principal); E78.5 Hyperlipidemia, unspecified
CPT/HCPCS: 21931; 87070; 87075; 87077; 87176; 87186; 87205; 88304; J0690; J1100; J2405; J2704; J2710; J3010; J3490; J7030

== ENCOUNTER → 2023-12-13 07:56 | Outpatient (BNVA) | payer MEDICARE, OTHER, SELFPAY | PROVIDERS: PCP Family Medicine; Visit Provider Student in an Organized Health Care Education/Training Program | DX: Z98.890 Other specified postprocedural states (principal) | CPT/HCPCS: 99024 ==

== ENCOUNTER 2023-12-19 08:11 | Outpatient (CLI) | payer MEDICARE, OTHER, SELFPAY ==
[2023-12-19 08:30] VITALS: PULSE 47; RESP 18; O2SAT 98
[2023-12-19] MEDS: albuterol 2.5 mg/3 mL Neb INHALATION (08:30)
== END 2023-12-19 08:12 | disposition home or self-care (01) ==
PROVIDERS: PCP Family Medicine; Visit Provider Family Medicine
DX: R06.09 Other forms of dyspnea (principal)
CPT/HCPCS: 94060; 94726; 94729; J7613

== ENCOUNTER 2024-01-01 08:03 | Outpatient (CLI) | payer OTHER, SELFPAY ==
[2024-01-01 08:25] LABS: Add Urine Microscopic? NO
[2024-01-01 08:42] LABS: Bilirubin Urine Negative (Negative); Blood Urine Negative (Negative); Glucose Urine UA Negative (Normal); Ketones Urine Negative (Negative); Leukocyte Esterase Urine Negative (Negative); Nitrate Urine Negative (Negative); Protein Urine Negative (Negative); Specific Gravity, Urine 1.014 (1.005-1.030); Urine Appearance Clear (CLEAR); Urine Color Yellow (Yellow); Urobilinogen Urine 0.2 mg/dL (Negative)
[2024-01-01 08:55] LABS: Alanine Aminotransferase 17 U/L (0-41); Albumin Level 4.5 g/dL (3.5-5.2); Alkaline Phosphatase 75 U/L (40-130); Anion Gap 15.5 (5-19); Aspartate Amino Transferase 32 U/L (0-40); Blood Urea Nitrogen 25 mg/dL (8-23); Calcium 8.9 mg/dL (8.5-10.5); Carbon Dioxide 23 mmol/L (22-29); Chloride 105 mmol/L (98-107); Globulin 2.8 g/dL (1.3-4.6); Glucose 122 mg/dL (65-115); Osmolality Calculated 294 mOsm/kg (285-295); Potassium 4.5 mmol/L (3.5-5.1); Sodium 139 mmol/L (136-145); Total Bilirubin 0.5 mg/dL (0.15-1.2); Total Protein 7.3 g/dL (6.6-8.7)
[2024-01-01 08:59] LABS: Add Urine Culture? No; Charge for UA Resulting for Rev
== END 2024-01-01 08:04 | disposition home or self-care (01) ==
LOC: LAB 08:05
PROVIDERS: PCP Family Medicine; Visit Provider Chiropractor
DX: N18.9 Chronic kidney disease, unspecified (principal)
CPT/HCPCS: 80053; 81003

== ENCOUNTER → 2024-04-17 09:16 | Outpatient (BNVA) | payer MEDICARE, OTHER, SELFPAY | PROVIDERS: PCP Family Medicine; Referring Provider Family Medicine; Visit Provider Orthopaedic Surgery | DX: M25.511 Pain in right shoulder (principal); Z98.890 Other specified postprocedural states | CPT/HCPCS: 73030; 99204 ==

== ENCOUNTER 2024-04-23 08:06 | Outpatient (CLI) | payer MEDICARE, OTHER, SELFPAY ==
--- NOTE | 2024-04-23 08:45 | MR_ITS ---
WS: [id number] MRI RIGHT SHOULDER NONCONTRAST TECHNIQUE: Sagittal T2, coronal T1, T2 and proton density imaging. Axial gradient PDE imaging. CLINICAL INFORMATION: right shoulder pain/previous rotator cuff repair COMPARISON: None. FINDINGS: Some images significantly degraded due to motion artifact and spasms. Rotator cuff anchors degrades some images. Humeral head rotator cuff anchor. Advanced degenerative arthritis AC joint marked narrowing of the subacromial space. Intensity of narrowing at the glenohumeral articulation. Fatty atrophy of the supraspinatus muscle belly. Marked narrowing of the subacromial space. 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 There appears to be some supraspinatus fibers intact distally near the anchor infraspinatus appears intact. Teres minor appears intact. Chronic thinning of the subscapularis tendon. Tiny residual biceps tendon within the bicipital groove. Hypertrophic changes about the glenohumeral joint. Intra-articular biceps tendon appears intact. MR/MR shoulder RT wo con* [id number] IMPRESSION: Limited examination.Some images significantly degraded due to motio n artifact and spasms. 1. Suspected recurrent high-grade tear of the supraspinatus with a fluid-fille d tendon gap and retraction to the level of the glenohumeral joint. There appea rs to be some residual supraspinatus fibers intact distally near the anchor 2. Rotator cuff otherwise appears intact. 3. Advanced arthritis of the AC joint with near complete loss of subacromial s pace. 4. Advanced narrowing glenohumeral articulation. 5. Residual tiny biceps remnant in the bicipital groove. Intra-articular bicep s tendon appears intact.
== END 2024-04-23 08:07 | disposition home or self-care (01) ==
PROVIDERS: PCP Family Medicine; Visit Provider Orthopaedic Surgery
DX: M25.511 Pain in right shoulder (principal); S46.009A Unspecified injury of muscle(s) and tendon(s) of the rotator cuff of unspecified shoulder, initial encounter; Z98.890 Other specified postprocedural states; X58.XXXA Exposure to other specified factors, initial encounter; M19.011 Primary osteoarthritis, right shoulder; M62.511 Muscle wasting and atrophy, not elsewhere classified, right shoulder; R93.6 Abnormal findings on diagnostic imaging of limbs
CPT/HCPCS: 73221

== ENCOUNTER → 2024-04-29 10:52 | Outpatient (BNVA) | payer MEDICARE, OTHER, SELFPAY | PROVIDERS: PCP Family Medicine; Visit Provider Orthopaedic Surgery | DX: M75.101 Unspecified rotator cuff tear or rupture of right shoulder, not specified as traumatic (principal); M12.811 Other specific arthropathies, not elsewhere classified, right shoulder | CPT/HCPCS: 99213 ==

== ENCOUNTER 2024-05-07 06:10 | Day surgery (SDC) | payer MEDICARE, OTHER, SELFPAY ==
[2024-05-07] VITALS (10 sets, daily range): BP systolic 110–168; BP diastolic 59–97; PULSE 52–68; RESP 8–18; TEMP 36.1–36.6; O2SAT 91–98; BMI 27.8
--- NOTE | 2024-05-07 06:39 | W.PM.OPSFHP ---
Same Day Surgery H&P Indication for Procedure/HPI DATE OF PROCEDURE: May 07, 2024 CHIEF COMPLAINT/INDICATIONFOR SURGICAL PROCEDURE: Painful right shoulder with loss of motion and strength. PREOP DIAGNOSIS: Right rotator cuff tear PLANNED PROCEDURE: Operation Date: 05/07/24 08:00 Proposed Procedures p Shoulder Arthroscopy(Right) - Robin Conroy MD s Possible Rotator Cuff Repair - Arthroscopy(Right) - Robin Conroy MD Medications/Allergies* Home Medications ?Medication ?Instructions ?Recorded ?Confirmed ?Type rosuvastatin 5 mg tablet 5 mg PO EVERY OTHER DAY 11/21/23 05/06/24 History Allergies/Adverse Reactions Allergy/AdvReac Type Severity Reaction Status Date / Time hydrocodone Allergy ADR-Halluci Verified 05/06/24 11:05 nating oxycodone Allergy ADR-Halluci Verified 04/17/24 09:22 nating Pertinent History/Comorbid Conditions* Medical History (Updated 04/29/24 @ 16:05 by Robin Conroy MD) No pertinent past medical history Family History (Updated 11/21/23 @ 10:27 by VICENTE Coronado) Colon cancer Father Social History Smoking and tobacco/nicotine status: former use of tobacco/nicotine Alcohol intake: former Pertinent Exam Findings alert, oriented x 3, clear to auscultation bilaterally, regular rate & rhythm, operative site marked and procedure specific exam findings (Tenderness to palpation right shoulder, drop arm test positive, MRI finding) Recommendations Surgery/Procedure today Other Plans: Plan at this time is for diagnostic right shoulder arthroscopy with possible open rotator cuff repair with possible biological patch Coding Level of Care Code Acute Code for Lyly Fwofelia
--- NOTE | 2024-05-07 06:41 | ECG_ITS ---
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
[2024-05-07] MEDS: sodium chloride 0.9% 1,000 ML 30 ML IV (06:48)
--- NOTE | 2024-05-07 07:36 | ANES.PREANE2 ---
Pre-Anesthetic Assessment Height/Weight: Height 5 ft 10 in Weight 194 lb Temp Pulse Resp BP Pulse Ox O2 Del Method 98 F 60 16 168/97 98 Room Air 05/07/24 06:28 05/07/24 06:28 05/07/24 06:28 05/07/24 06:28 05/07/24 06:28 05/07/24 06:28 Preop Diagnosis: Right rotator cuff tear Operation Date: 05/07/24 08:00 Proposed Procedures p Shoulder Arthroscopy(Right) - Robin Conroy MD s Possible Rotator Cuff Repair - Arthroscopy(Right) - Robin Conroy MD Was Beta John taken within 24 hours: N/A Was Clonidine taken within 24 hours: N/A Last intake: Intake Last Liquid Date 05/06/24 Last Liquid Time 21:00 Last Solid Date 05/06/24 Last Solid Time 17:30 Social No alcohol and No tobacco Quit smoking 18 years ago Exam alert, oriented x 3, clear to auscultation bilaterally and regular rate & rhythm Airway Submandibular: within normal limits Cervical ROM: within normal limits Mallampati: Class II Comments: Comments: Edentulous Anesthetic Plan ASA status: 2 Anesthesia: General and Regional (specify below) Other: No prior issues with anesthesia NPO since yesterday evening Denies any hypertension, preop BP 168/97 UCHE, wears CPAP nightly EKG today showing sinus bradycardia with a mild T wave abnormality. Denies any chest pain/shortness of breath Severe deviated septum, postnasal drip noted Very active individual, METs greater than 4 Plan for general anesthesia with preop nerve block Medications/Allergies Home Medications ?Medication ?Instructions ?Recorded ?Confirmed ?Last Taken ?Type rosuvastatin 5 mg tablet 5 mg PO EVERY OTHER DAY 11/21/23 05/06/24 05/05/24 History Allergies Allergy/AdvReac Type Severity Reaction Status Date / Time hydrocodone Allergy ADR-Halluci Verified 05/06/24 11:05 nating oxycodone Allergy ADR-Halluci Verified 04/17/24 09:22 nating Current Medications Generic Name Dose Route Start Last Admin Trade Name Freq PRN Reason Stop Dose Admin Sodium Chloride 1,000 mls @ 30 mls/hr 05/07/24 06:30 05/07/24 06:48 Sodium Chloride 0.9% IV 05/08/24 06:29 30 mls/hr .Q24H SIENNA Administration PFSH Anesthesia Medical History No pertinent past medical history Family History Father Colon cancer Social History Smoking and tobacco/nicotine status: former use of tobacco/nicotine Alcohol intake: former Data Anesthesia Cardiac Studies: No Data to Display
--- NOTE | 2024-05-07 07:37 | ANES.PROC ---
Anesthesia Procedures Procedure/Date: 05/07/24 Nerve Block ^: Nerve Block 1: Main Anesthesia: other (100 mcg fentanyl) Time Out Performed: Yes Consent: requested by attending/covering physician Nerve block location: interscalene Anesthesia monitors applied: pulse oximetry, EKG, BP cuff and oxygen Nerve block position: supine Anesthetic Used: ropivicaine 0.5% Amount of anesthesia used (mL): 30 Ultrasound used to: recognize landmarks Nerve Stimulator Used?: Yes Interscalene/Femoral BLK: other needle (pjunk 4inch) Injection: neg aspiration of heme Patient Tolerated Procedure: well Complications: none Additional Comments: Decadron 4 mg
[2024-05-07] MEDS: ceFAZolin 2,000 mg SDV 2000 MG IVP (07:56)
--- NOTE | 2024-05-07 10:23 | PM.OP ---
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 Open exploration and debridement of rotator cuff. Surgeon: Robin Conroy MD Anesthesia: General With preoperative scalene block EBL: 20 cc Complications: None Indications: Guero is a 78-year-old white male presented in the orthopedic clinic with painful right shoulder. He has previously had a rotator cuff repair many years back but recently has been having increasing pain and problems difficulties with his shoulder. He now cannot raise his arm at all. Clinical exam was consistent of possible rotator cuff tear MRI subsequently demonstrated a tear within the main structure of the rotator cuff of the supraspinatus region. Degenerative changes also noted throughout the shoulder. Patient then offered a diagnostic show arthroscopy with possible open rotator cuff repair if necessary. I have also discussed putting a biological patch over the area to try and help. Otherwise I will do what he can. All risk benefits treatment alternatives have discussed with him he would like go ahead and proceed with surgical intervention. Procedure: After obtaining the consent patient had a scalene block administered. Patient was then taken to the operating room placed operative table supine position general anesthetic ministered. Once good anesthesia achieved patient was placed up in the beachchair position and right shoulder and arm were prepped and draped usual fashion. After surgical timeout standard posterior portal was placed with a #11 blade camera cannulas placed within the glenohumeral joint line. It was noted that this passed quite easily indicating possible poor tissue or already a posterior rotator cuff tear. Once Was within the anterior working port was also placed. This too was passed easily. Once within the shoulder is evident that he had gross degenerative changes of the labrum anteriorly just inferior to the biceps tendon. Biceps tendon appeared to be intact but was adhered and scarred down to the anterior capsule of the of the shoulder. Grade 2 3 chondromalacia of the glenoid as well as humeral head were identified. Mechanical shaver was then used to debride the labrum both superiorly and anteriorly. Chondroplasty was done in the glenoid and of the humeral head. Further exploration demonstrated no insertion of the rotator cuff laterally of the supraspinatus. There is a band posteriorly of remaining rotator cuff back in the infraspinatus region. For the debridement of scar tissue and chronic inflammation as well as torn rotator cuff was done with mechanical shaver at this point. Arthroscopy was then discontinued. Standard anterior lateral incision made over the edge of the acromion and sharp dissect taken down to subcutaneous tissues. Electrocautery used for hemostasis. Electrocautery is used to dissect down through the deltoid which is found to be quite scarred down. And opening up the subacromial space. Once within this area it was identified that there was no rotator cuff covering the humeral head. By digital palpation some could be felt anteriorly and some quite posteriorly. Using Huang scissors and Allis clamps and blunt dissection fashion rotator cuff is attempted to be freed up however no mobility was obtained. Direct visualization demonstrated no coverage across the entire humeral head superiorly all the way back to the glenoid. Further tissue was debrided out of the area that was nonviable. Shoulders washed with sterile irrigation. At this point it was felt that there is no further repair of the could be done. Deltoid was reapproximated 0 Vicryl [id number] sutures. Subcutaneous was reapproximated Vicryl interrupted suture. Skin was closed with skin aj. Wounds are clean and dry dressed with a Adaptic dressing sterile gauze dressing ABDs and adhesive tape. Patient placed in arm sling and awakened transferred recovery in stable condition
--- NOTE | 2024-05-07 10:25 | ANE.PACU2 ---
Inpatient post-anesthesia follow up: Airway intact: Yes Vital signs: Temperature 98 F Pulse Rate 60 Respiratory Rate 17 Blood Pressure 131/82 Pulse Oximetry 96 Oxygen Delivery Me thod Room Air Oxygen Flow Rate Fraction of Inspir ed Oxygen Hydration adequate: Yes Nausea and vomiting: No Pain level: 1 Mental status: Baseline
== END 2024-05-07 10:25 | disposition home or self-care (01) ==
PROVIDERS: PCP Family Medicine; Visit Provider Orthopaedic Surgery
PROC: (CPT 29805; principal; 2024-05-07 07:40)
DX: M75.101 Unspecified rotator cuff tear or rupture of right shoulder, not specified as traumatic (principal); M94.211 Chondromalacia, right shoulder; S43.401A Unspecified sprain of right shoulder joint, initial encounter; M12.811 Other specific arthropathies, not elsewhere classified, right shoulder; Z79.899 Other long term (current) drug therapy; Z87.891 Personal history of nicotine dependence; G47.33 Obstructive sleep apnea (adult) (pediatric); J34.2 Deviated nasal septum; Z88.5 Allergy status to narcotic agent; X58.XXXA Exposure to other specified factors, initial encounter
CPT/HCPCS: 23107; 29823; 93005; J0690; J1100; J2371; J2405; J2704; J3010; J3490; J7030

== ENCOUNTER → 2024-05-15 08:10 | Outpatient (BNVA) | payer MEDICARE, OTHER, SELFPAY | PROVIDERS: PCP Family Medicine; Visit Provider Orthopaedic Surgery | DX: R03.0 Elevated blood-pressure reading, without diagnosis of hypertension (principal); Z98.890 Other specified postprocedural states | CPT/HCPCS: 99024 ==

== ENCOUNTER → 2024-10-29 10:10 | Outpatient (BNVA) | payer MEDICARE, OTHER, SELFPAY | PROVIDERS: PCP Family Medicine; Visit Provider Student in an Organized Health Care Education/Training Program | DX: M25.512 Pain in left shoulder (principal); Z98.890 Other specified postprocedural states; Z01.89 Encounter for other specified special examinations; M75.42 Impingement syndrome of left shoulder | CPT/HCPCS: 73030; 99213 ==

== ENCOUNTER 2024-11-19 08:01 | Outpatient (CLI) | payer OTHER, SELFPAY ==
[2024-11-19 08:43] LABS: Glucose Urine UA Negative (Normal); Nitrate Urine Negative (Negative); Specific Gravity, Urine 1.020 (1.005-1.030)
[2024-11-19 08:49] LABS: Add Urine Microscopic? YES
== END 2024-11-19 08:02 | disposition home or self-care (01) ==
LOC: LAB 08:06
PROVIDERS: PCP Family Medicine; Visit Provider Chiropractor
DX: E11.9 Type 2 diabetes mellitus without complications (principal)
CPT/HCPCS: 36415; 81001

== ENCOUNTER 2025-02-03 19:46 | Outpatient (CLI) | payer OTHER, MEDICARE, SELFPAY | END 2025-02-03 19:47 | disposition home or self-care (01) | LOC: SLEEP 19:48 | PROVIDERS: PCP Family Medicine; Referring Provider Family Medicine; Visit Provider Internal Medicine Pulmonary Disease | DX: G47.33 Obstructive sleep apnea (adult) (pediatric) (principal) | CPT/HCPCS: 95810 ==